=== PATIENT | male | born 1935 | race Caucasian/White ===

== ENCOUNTER → 2017-05-06 | Outpatient (CLI) | payer OTHER ==
[~2017-05-06] MED LIST: ACCUNEB SO1.25 MG/1 INH; ALDACTONE25 MG PO; AVAPRO 150 MG150 M1 PO; BENICAR20 MG PO; CHLORTHALIDONE25 MG PO; COUMADIN 10MG T10 M1 PO; COUMADIN 2 MG TA2 M1 PO; COUMADIN 5 MG TA5 M1 PO; FISH OIL + VIT1 EACH PO; FISH OIL 1,2001 EAC3 PO; HYDROCODON-ACE1 EAC7 PO; LASIX 40 MG TAB40 M1 PO; LIPITOR40 MG PO; PAIN RELIEVER500 M3 PO; PRAVACHOL40 MG PO; PROSCAR 5MG TABL5 MG PO; TAMSULOSIN HCL0.4 M1 PO; THERA-M CAPLET1 EACH PO; VITAMIN D250000 UNIT PO; ZANTAC 150MG T150 MG PO; ZOLOFT 50 MG TA50 M1 PO
== END ==
LOC: RAD 10:58 → SPEECH 10:58
DX: R47.02 Dysphasia (principal); R05 Cough

== ENCOUNTER → 2017-05-15 | Outpatient (CLI) | payer OTHER ==
[~2017-05-15] VITALS: Ht 188 cm; Wt 129.3 kg
--- NOTE | ~2017-05-15 | CATHLAB ---
[facility] [place] [address] INVASIVE PROCEDURE REPORT Name: RASHARD NOEL Room #: REG [facility]#: [id number] Admission: 05/15/17 Attend Phys: Aiden Mejia MD Discharge: Date of : 37 Date of Service: 05/15/17 1411 Report #: [id number] THIS REPORT FOR: //name// APPROVED REPORT Patient Details Patient Status: Out-Patient Room #: The patient is a 82 year-old male Event Personnel Aiden Mejia Hose Wrapper, Renato Sweeney RN, Katty Anne RTR, [employer] Monitor, Vicki Trejo Scrcheyenne Procedures Performed Art Access - R femoral artery* Left Heart Cath w/or w/o Coronaries [id number] [facility] [id number] Initial Mod Sed Same Phys/QHP Gr5y 802127 Hemostasis with Manual pressure Indication Atrial fibrillation, Dyspnea, Positive stress test Risk Factors Hypercholesterolemia, Hypertension Procedure Narrative The Right Groin^ was infiltrated with 1% Lidocaine subcutaneous anesthesia. A PINNACLE 4FR Sheath #[id number] sheath was inserted into the RFA. Coronary angiography was performed using coronary diagnostic catheters. The right coronary system was accessed and visualized with a JR4 catheter. The left coronary system was accessed and visualized with a JL4 catheter. Left ventricular/Aortic Valve gradient assessed via catheter pullback. Hemostasis was obtained with manual pressure following sheath removal without any complications. The patient tolerated the procedure well and there were no complications associated with the procedure. There was no hematoma. Intraoperative Conscious Sedation Sedation start time: 09:15 Case end Time: 09:27 Fentanyl 25 mcg Versed 1.5 mg Fluoro Time: 2.20 minutes Dose: DAP 7714.28 cGycm2 1067 mGy Contrast Type and Amount: Visipaque 75 ml [facility] [place] [address] INVASIVE PROCEDURE REPORT Name: RASHARD NOEL Room #: REG [facility]#: [id number] Admission: 05/15/17 Attend Phys: Aiden Mejia MD Discharge: Date of : 37 Date of Service: 05/15/17 1411 Report #: [id number] Coronary Angiography The patient's coronary anatomy is co- dominant. Diagnostic Cath Left Main Moderate to large caliber vessel, with no flow-limiting lesions. LAD Moderate size caliber vessel, traveling down the anterior wall and wrapping around the apex. There may be some minimal luminal irregularities within the mid segment. Diagonal 1 Moderate size caliber vessel, patent with no flow-limiting lesions. Circumflex Codominant vessel with minimal luminal irregularities in the mid segment. There are several small obtuse marginal arteries, patent with no flow-limiting lesions. Right Coronary Mild disease in the mid segment, 20%. R PDA Patent vessel, with no flow-limiting lesions. Ramus Patent vessel, with no flow-limiting lesions. Left Ventriculography Left Ventriculography was not performed. Ejection Fraction was >55% based off patient's Nuclear Cardiac Stress Test. An LVEDP was measured and there is no gradient across the outflow tract. Hemodynamics The aortic pressure is 142/76 mmHg with a mean of 101 mmHg. The left ventricular pressure is 136/17 mmHg with a mean of mmHg. The left ventricular end diastolic pressure is 33 mmHg. Conclusion 1. Codominant system. 2. 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 3. There may be minimal luminal irregularities in the LAD and left circumflex arteries. 4. Recommend medical therapy. <ELECTRONICALLY SIGNED> By: Aiden Mejia MD 05/15/17 141 10 10 Aiden Mejia MD /INF
--- NOTE | ~2017-05-15 | EKG ---
[place] [address] [facility] [address] [place] [address] ELECTROCARDIOGRAM REPORT Name: RASHARD NOEL Room #: REG CLI [facility]#: [id number] Admission: 05/15/17 Attend Phys: Aiden Mejia MD Discharge: Date of : 37 Report #: [id number] THIS REPORT FOR: //name// [facility] Test Date: 2017-05-15 Test Time: 08:20:22 Pat Name: RASHARD NOEL Department: Room: Gender: Medical Collections Representative: Alissa WHIPPLE : 1935 Requested By: Aiden Mejia Order Number: [id number] MD: Enmanuel Fenton Measurements Intervals [place] Rate: 59 P: VT: QRS: -79 QRSD: 173 T: 107 QT: 483 QTc: 479 Interpretive Statements Afib/flut and V-paced complexes No further analysis attempted due to paced rhythm Compared to ECG 09/11/2001 09:42:48 No significant changes Electronically Signed On 05-15-2017 8:54:55 SENIOR CARE ASSISTANT by Enmanuel Fenton [email or web address] <ELECTRONICALLY SIGNED> By: Enmanuel Fenton MD, [facility] 05/15/1754 9 9 Enmanuel Fenton MD, [facility] /EPI
[2017-05-15 08:32] VITALS: BP 119/53
[2017-05-15 08:40] LABS: HEMATOCRIT 44.4 % (42.0-52.0); HEMOGLOBIN 15.1 gm/dL (14.0-18.0); MCH 32.1 pg (26.0-34.0); MCHC 33.9 g/dL (28.0-37.0); MCV 94.7 fL (80.0-100.0); RBC 4.69 mil/uL (4.50-6.00); RDW 13.3 % (10.5-14.5); WBC 6.3 thou/uL (4.0-11.0)
[2017-05-15 08:46] LABS: CREATININE 1.5 mg/dL (0.7-1.3); POTASSIUM 4.3 mmol/L (3.5-5.1)
[2017-05-15 09:05] LABS: APTT 25.9 Seconds (24.5-32.8); INR 1.1; PROTIME 11.1 Seconds (9.3-11.4)
== END | disposition home or self-care (01) ==
LOC: CATH 07:57
PROVIDERS: Internal Medicine Cardiovascular Disease
DX: I25.10 Atherosclerotic heart disease of native coronary artery without angina pectoris (principal); E78.00 Pure hypercholesterolemia, unspecified; I10 Essential (primary) hypertension; I48.91 Unspecified atrial fibrillation

== ENCOUNTER 2020-03-24 15:58 | Emergency (ER) | payer OTHER ==
[~2020-03-24] VITALS: Ht 188 cm; Wt 121.1 kg
[2020-03-24 17:57] VITALS: BP 127/68
== END 2020-03-24 17:55 | disposition home or self-care (01) ==
LOC: ER 15:58
DX: M79.652 Pain in left thigh (principal); I48.91 Unspecified atrial fibrillation; F32.9 Major depressive disorder, single episode, unspecified; I11.0 Hypertensive heart disease with heart failure; I50.40 Unspecified combined systolic (congestive) and diastolic (congestive) heart failure; J44.9 Chronic obstructive pulmonary disease, unspecified; I73.9 Peripheral vascular disease, unspecified; Z95.0 Presence of cardiac pacemaker; Z79.899 Other long term (current) drug therapy; Z79.01 Long term (current) use of anticoagulants; Z88.8 Allergy status to other drugs, medicaments and biological substances